=== PATIENT | male | born 1980 | race Caucasian/White ===

== ENCOUNTER 2016-10-02 05:38 | Emergency (ER) | payer SELFPAY ==
[2016-10-02 06:36] LABS: #Basophils 0.1 thou/uL (0.0-0.2); #Lymphocytes 1.4 thou/uL (1.20-3.40); #Monocytes 0.6 thou/uL (0.11-0.59); %Eosinophils 0.2 % (0.0-10.0); %Lymphocytes 11.2 % (21.0-51.0); %Monocytes 4.7 % (0.0-10.0); %Neutrophils 82.9 % (42.0-75.0); Hemoglobin 15.2 g/dL (14.0-18.0); Mean Corpuscular HGB CONC 34.3 g/dL (32.0-36.0); Mean Corpuscular Hemoglobin 31.6 pg (27.0-31.0); Mean Corpuscular Volume 92.1 fl (80.0-94.0); Mean Platelet Volume 7.2 fL (7.4-10.4); Platelet Count 303 thou/uL (130-400); Red Blood Cell (RBC) Count 4.81 mill/uL (4.70-6.10); White Blood Cell (WBC) Count 12.1 thou/uL (4.8-10.8)
[2016-10-02 06:53] LABS: Bilirubin Negative (Negative); Blood, Urine Small (Negative); Clarity Slightly Cloudy (Clear); Glucose, Urine (Dipstick) 500 mg/dL (Negative); Leukocyte Negative (Negative); Nitrite Negative (Negative); Protein, Urine (Dipstick) 30 mg/dL (Neg-Trace); Urobilinogen 0.2 mg/dL (0.2-1.0)
[2016-10-02 06:55] LABS: ALT (SGPT) 45 U/L (8-55); AST (SGOT) 27 U/L (5-34); Albumin 4.1 g/dL (3.5-5.0); Alkaline Phosphatase 151 U/L (40-150); Anion Gap 19 mmol/L (10-20); BUN (Urea Nitrogen) 21 mg/dL (8.9-20.6); Bilirubin, Total 0.7 mg/dL (0.2-1.2); Calc. Creatinine Clearance 0 mL/min (70-130); Calcium 9.1 mg/dL (7.8-10.44); Carbon Dioxide 22 mmol/L (22-29); Chloride 96 mmol/L (98-107); Estimated GFR-MDRD 60; Globulin 3.4 g/dL (2.4-3.5); Potassium 4.6 mmol/L (3.5-5.1); Protein, Total 7.5 g/dL (6.0-8.3); Sodium 132 mmol/L (136-145)
[2016-10-02 06:57] LABS: CKMB 2.9 ng/mL (0-6.6); Troponin I Less than 0.010 ng/mL (< 0.028)
[2016-10-02 06:59] LABS: Bacteria/HPF Rare-Few HPF (None Seen); Squamous Epithelial None Seen HPF (0-3); WBC/HPF 0-3 HPF (0-3)
[2016-10-02 07:02] LABS: Glucose 601 mg/dL (70-105)
[2016-10-02 08:26] LABS: Amphetamine Detected (NotDetected); Barbiturates Screen Not Detected (NotDetected); Benzodiazepine Screen Not Detected (NotDetected); Cocaine Metabolite Screen Not Detected (NotDetected); Medtox Control Line Valid? VALID (VALID); Methadone Not Detected (NotDetected); Methamphetamine Detected (NotDetected); Opiate Screen Not Detected (NotDetected); Oxycodone Screen Not Detected (NotDetected); Phencyclidine (PCP) Not Detected (NotDetected); THC/Cannabinoid Screen Not Detected (NotDetected); Tricyclic Screen Not Detected (NotDetected)
[2016-10-02 08:35] LABS: Acetaminophen Less than 6.0 mcg/mL (10.0-30.0); Alcohol Less than 10 mg/dL (Less than 10); Salicylate Less than 8.0 mg/dL (15.0-30.0)
== END 2016-10-02 09:00 | disposition home or self-care (01) ==
LOC: BURLAB 05:38 → EDSTATUS 05:52 → BURLAB 09:00
DX: E10.65 Type 1 diabetes mellitus with hyperglycemia (principal); Z72.0 Tobacco use
CPT/HCPCS: 36416; 80053; 80306; 80307; 81003; 81015; 82553; 84484; 85025; 96372; 96374

== ENCOUNTER 2018-01-21 22:17 | Emergency (ER) | payer SELFPAY ==
[2018-01-21] MEDS ORDERED: Ondansetron PF 4 MG/2 ML Vial ONE (22:32)
[2018-01-21 22:39] LABS: #Basophils 0.1 thou/uL (0.0-0.2); #Lymphocytes 1.4 thou/uL (1.20-3.40); #Monocytes 0.4 thou/uL (0.11-0.59); #Neutrophils 7.8 thou/uL (1.40-6.50); %Basophils 0.7 % (0.0-1.0); %Eosinophils 0.3 % (0.0-10.0); %Lymphocytes 14.8 % (21.0-51.0); %Monocytes 3.8 % (0.0-10.0); %Neutrophils 80.3 % (42.0-75.0); Hemoglobin 16.7 g/dL (14.0-18.0); Mean Corpuscular Hemoglobin 30.9 pg (27.0-31.0); Mean Platelet Volume 7.8 fL (7.4-10.4); Platelet Count 405 thou/uL (130-400); RBC Distribution Width 11.8 % (11.5-14.5); White Blood Cell (WBC) Count 9.7 thou/uL (4.8-10.8)
[2018-01-21 22:54] LABS: ALT (SGPT) 28 U/L (8-55); AST (SGOT) 13 U/L (5-34); Acetaminophen Less than 6.0 mcg/mL (10.0-30.0); Albumin 4.2 g/dL (3.5-5.0); Alcohol Less than 10 mg/dL (Less than 10); Alkaline Phosphatase 149 U/L (40-150); Anion Gap 28 mmol/L (10-20); BUN (Urea Nitrogen) 16 mg/dL (8.9-20.6); Bilirubin, Total 0.2 mg/dL (0.2-1.2); Calc. Creatinine Clearance 0 mL/min (70-130); Calcium 8.7 mg/dL (7.8-10.44); Chloride 94 mmol/L (98-107); Estimated GFR-MDRD 45; Globulin 3.5 g/dL (2.4-3.5); Glucose 465 mg/dL (70-105); Potassium 4.3 mmol/L (3.5-5.1); Protein, Total 7.7 g/dL (6.0-8.3); Salicylate Less than 8.0 mg/dL (15.0-30.0); Sodium 127 mmol/L (136-145)
[2018-01-21 22:55] LABS: CKMB 1.9 ng/mL (0-6.6); Troponin I Less than 0.010 ng/mL (< 0.028)
[2018-01-21 22:57] LABS: Carbon Dioxide 9 mmol/L (22-29)
[2018-01-21 23:01] LABS: Clarity Clear (Clear)
[2018-01-21 23:02] LABS: Specific Gravity, Urine 1.028 (1.002-1.036)
[2018-01-21 23:03] LABS: Glucose, Urine (Dipstick) 500 mg/dL (Negative); Leukocyte Negative (Negative); Nitrite Negative (Negative); Protein, Urine (Dipstick) 100 mg/dL (Neg-Trace)
[2018-01-21 23:04] LABS: Bilirubin Negative (Negative); Blood, Urine Small (Negative); Urobilinogen 0.2 mg/dL (0.2-1.0)
[2018-01-21 23:08] LABS: Bacteria/HPF Rare-Few HPF (None Seen); Hyaline Casts/LPF 0-3 HYALINE CAST LPF (0-3 Hyaline); RBC/HPF 0-3 HPF (0-3); Squamous Epithelial 0-3 HPF (0-3); WBC/HPF None Seen HPF (0-3)
[2018-01-21] MEDS ORDERED: Insulin Regular 300 UNITS/3 ML VIAL ONE (23:09)
[2018-01-21 23:18] LABS: Amphetamine Not Detected (NotDetected); Barbiturates Screen Not Detected (NotDetected); Benzodiazepine Screen Not Detected (NotDetected); Cocaine Metabolite Screen Not Detected (NotDetected); Medtox Control Line Valid? VALID (VALID); Methadone Not Detected (NotDetected); Methamphetamine Not Detected (NotDetected); Opiate Screen Not Detected (NotDetected); Oxycodone Screen Not Detected (NotDetected); Phencyclidine (PCP) Not Detected (NotDetected); THC/Cannabinoid Screen Not Detected (NotDetected); Tricyclic Screen Not Detected (NotDetected)
[2018-01-21] MEDS ORDERED: Potassium Chloride 20 MEQ/100 ML PREMIX BAG ONE (23:25)
[2018-01-21 23:40] LABS: CO2 Tension (PvCO2) 25.7 mmHg (41.0-51.0); O2 Tension (PvO2) 54.3 mmHg (35.0-45.0); pH (Venous) 7.141 (7.35-7.45)
[2018-01-21 23:41] LABS: Base Excess-Venous -18.6 mmol/L (0 (+/- 2.5)); Bicarbonate (HCO3v) 8.8 mmol/L (1.0-85.0); Calcium, Ionized 1.09 mmol/L (1.12-1.32); Hemoglobin - Calc 15.3 g/dL (12.0-18.0); Potassium 3.6 mmol/L (3.4-4.7); T. Carbon Dioxide 9.6 mmol/L (1.0-85.0); vO2 Saturation-calc 78.4 % (94-98)
== END 2018-01-22 00:06 | disposition home or self-care (01) ==
LOC: BURERS 22:17
DX: E10.10 Type 1 diabetes mellitus with ketoacidosis without coma (principal); E78.1 Pure hyperglyceridemia
CPT/HCPCS: 36415; 36416; 80053; 80306; 80307; 81003; 81015; 82330; 82553; 82803; 84443; 84484; 85025; 93005; 94760; 96361; 96374; 96375; 96376; J1815; J2405; J3480